=== PATIENT | female | born 1940 | race African-American/Black ===

== ENCOUNTER 2016-09-30 06:30 | Emergency (ER) | payer MEDICARE, OTHER ==
[~2016-09-30 06:30] MED LIST: AMLO10TA2 PO; AMLO10TA4 PO; ASPI81TA9 PO; ATOR40TA59 PO; BENZ100C PO; CALC-98 PO; CARV25TA2 PO; CARV3.12 PO; CARV6.25 PO; CHLO25TA PO; CYCL10TA2 PO; DICL100G7 TOP; DONE10TA7 PO; DONE5TAB33 PO; GABA-586 PO; GUAI600T38 PO; HYDR12.53 PO; LISI10TA2 PO; LORA0.5T96 PO; NITR0.4T SL; ONDA4TAB10 SL; POTA10CA PO; POTA20TA4 PO; PRAV20TA PO; PRAV40TA2 PO; RIVA10TA PO; RIVA15TA PO; RIVA20TA2 PO; TRIA1CAP3 PO; [UNRECOGNIZED DRUG - REMARK]
--- NOTE | 2016-09-30 07:00 | ED.ADGEN ---
Past History Past Medical History: Anxiety, Arthritis, CAD, Depression, DVT, Heart Disease, Hypertension Past Surgical History: Hysterectomy, Knee Replacement, Other Smoking: Non-smoker Alcohol Use: None Drug Use: None Adult General HPI HPI Patient is a 75 year old female presents after a brief episode of "sharp" chest pain that lasted less than 30 minutes. It did not radiate. She had no associated symptoms such as diaphoresis, dyspnea, nausea, or vomiting. Patient denies any other history besides hypertension. She does relate that she has had some stress recently involving her children. Denies any pain currently. Review of Systems Review of Systems Constitutional: Denies fever or chills [] Eyes: Denies change in visual acuity, redness, or eye pain [] HENT: Denies nasal congestion or sore throat [] Respiratory: Denies cough or shortness of breath [] Cardiovascular: No additional information not addressed in HPI [] GI: Denies abdominal pain, nausea, vomiting, bloody stools or diarrhea [] : Denies dysuria or hematuria [] Musculoskeletal: Denies back pain or joint pain [] Integument: Denies rash or skin lesions [] Neurologic: Denies headache, focal weakness or sensory changes [] Endocrine: Denies polyuria or polydipsia [] Allergies Allergies Allergies Coded Allergies Type Severity Reaction Last Updated Verified ARB-Angiotensin Receptor Antagonist Allergy Severe 09/09/15 Yes Penicillins Allergy Severe 04/30/15 Yes meperidine Allergy Severe 04/30/15 Yes lisinopril Allergy Intermediate 05/01/15 Yes Physical Exam Physical Exam Constitutional: Well developed, well nourished, no acute distress, non-toxic appearance. [] HENT: Normocephalic, atraumatic, bilateral external ears normal, oropharynx moist, no oral exudates, nose normal. [] Eyes: PERRLA, EOMI, conjunctiva normal, no discharge. [] Neck: Normal range of motion, no tenderness, supple, no stridor. [] Cardiovascular:Heart rate regular rhythm, no murmur [] Lungs & Thorax: Bilateral breath sounds clear to auscultation [] Abdomen: Bowel sounds normal, soft, no tenderness, no masses, no pulsatile masses. [] Skin: Warm, dry, no erythema, no rash. [] Back: No tenderness, no CVA tenderness. [] Extremities: No tenderness, no cyanosis, no clubbing, ROM intact, no edema. [] Neurologic: Alert and oriented X 3, normal motor function, normal sensory function, no focal deficits noted. [] Psychologic: Affect normal, judgement normal, mood normal. [] Current Patient Data Vital Signs Vital Signs Date Time Temp Pulse Resp B/P Pulse Ox O2 Delivery O2 Flow Rate FiO2 09/30/16 06:50 97.9 69 12 99 Room Air Lab Results Laboratory Tests Test 09/30/16 06:59 09/30/16 07:13 POC Troponin I 0.01ng/ml (<0.08) POC Hemoglobin 13.6gm/dL POC Hematocrit 40% POC Sodium 143mmol/L (135-145) POC Potassium 3.4mmol/L (3.5-5.0) L POC Chloride 100mmol/L (98-110) POC Total CO2 28mmol/L (23-32) Anion Gap 19mmol/L (6-14) H POC Blood Urea Nitrogen 11mg/dL (8-26) POC Creatinine 0.8mg/dL (0.5-1.4) Glucose Level 120mg/dL (60-99) H POC Ionized Calcium (Gus) 1.07mmol/L (1.13-1.32) L EKG EKG EKG interpreted by me, normal sinus rhythm, 64 beats for minute, no ST segment elevation, normal axis. [] Radiology/Procedures Radiology/Procedures Chest x-ray interpreted by me, no acute cardiopulmonary process. [] Course & Med Decision Making Course & Med Decision Making Pertinent Labs and Imaging studies reviewed. (See chart for details) Reassuring workup in the Emergency department. Patient will call Dr. Smith' s office later this morning to arrange follow-up. She will return emergency department sooner she lost new or worsening symptoms. [] Final Impression Final Impression Chest Pain[] Problems: Dragon Disclaimer Dragon Disclaimer This electronic medical record was generated, in whole or in part, using a voice recognition dictation system. SYLVIA DIAZ MD Sep 30, 2016 07:00
[2016-09-30 07:32] LABS: HEMOGLOBIN ISTAT 13.6 gm/dL; POTASSIUM ISTAT 3.4 mmol/L (3.5-5.0)
[2016-09-30] MEDS ORDERED: HYDROMORPHONE PF 1 MG/ML DISP.SYRIN. ONE (08:06)
[2016-09-30 08:10] VITALS: BP 180/69
--- NOTE | 2016-09-30 08:19 | RAD ---
Portable chest, 09/30/2016: History: Chest pain Comparison is made to a study from 05/18/2016. The heart is enlarged. There is tortuosity of the thoracic aorta. The pulmonary vascularity is normal. There is an unchanged nodule in the right mid lung which is probably a granuloma. No acute infiltrates are seen. There is no evidence of pleural fluid. IMPRESSION: 1. Cardiomegaly. 2. No acute abnormality is detected.
--- NOTE | 2016-09-30 17:31 | EKG ---
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
== END 2016-09-30 08:16 | disposition home or self-care (01) ==
LOC: ER 06:30
DX: R07.9 Chest pain, unspecified (principal); I25.10 Atherosclerotic heart disease of native coronary artery without angina pectoris; I11.9 Hypertensive heart disease without heart failure; M19.90 Unspecified osteoarthritis, unspecified site; Z86.718 Personal history of other venous thrombosis and embolism; Z88.0 Allergy status to penicillin; Z88.8 Allergy status to other drugs, medicaments and biological substances
CPT/HCPCS: 71010; 80047; 84484; 93005; 99284-25

== ENCOUNTER → 2017-02-06 | Outpatient (CLI) | payer MEDICARE, OTHER ==
[~2017-02-06] MED LIST changes: +ASPI-612 PO; -ASPI81TA9 PO; +CYCL-331 PO; -CYCL10TA2 PO; +DICL100G18 TOP; -DICL100G7 TOP; -DONE5TAB33 PO; +DONE5TAB56 PO; -GUAI600T38 PO; +GUAI600T47 PO; +IOHEXOL 300 MG/ML 75 ML VIAL. IV ONE
--- NOTE | 2017-02-06 15:47 | RAD ---
CTA of the chest with contrast (pulmonary embolism protocol) 02/06/2017 Clinical history: Elevated d-dimer. Technique: After the intravenous administration of 75 cc of Omnipaque 300, contiguous, 0.625 mm axial sections were obtained through the chest. 2 mm reconstructed axial and 3-D MIP sagittal and coronal reconstructed images were obtained. One or more of the following individualized dose reduction techniques were utilized for this study: 1. Automated exposure control. 2. Adjustment of the mA and/or kV according to patient size. 3. Use of iterative reconstruction technique. Findings: No filling defect is seen within the major branches of either pulmonary artery. There is no CT evidence of pulmonary embolism. The heart is mildly enlarged. Atherosclerotic calcification of the thoracic aorta and its branches is seen. The thoracic aorta is tortuous but tapers normally. Extensive coronary artery calcifications are noted. No area of consolidation is seen. Dependent subsegmental atelectasis seen involving both lungs, right greater than left. No pneumothorax or definite pleural effusion is noted. Impression: There is no CT evidence of pulmonary embolism.
== END | disposition home or self-care (01) ==
LOC: CT 15:03
PROVIDERS: ATTEND Family Medicine
DX: I70.0 Atherosclerosis of aorta (principal); R05 Cough
CPT/HCPCS: 71275; Q9967

== ENCOUNTER 2019-02-15 15:12 | Emergency (ER) | payer MEDICARE, OTHER ==
[~2019-02-15] VITALS: Ht 165.1 cm; Wt 95.0 kg
[~2019-02-15 15:12] MED LIST changes: -AMLO10TA2 PO; +AMLO10TA8 PO; -CHLO25TA PO; +CHLO25TA9 PO; -HYDR12.53 PO; +HYDR12.572 PO; -IOHEXOL 300 MG/ML 75 ML VIAL. IV ONE
--- NOTE | 2019-02-15 15:58 | PHYS DOC ---
Past History Past Medical History: Anxiety, Arthritis, CAD, Dementia, Depression, DVT, Heart Disease, Hypertension Past Surgical History: Hysterectomy, Knee Replacement, Other Smoking: Non-smoker Alcohol Use: None Drug Use: None Adult General Chief Complaint Chief Complaint: HIP PAIN HPI HPI Patient is an 78-year-old female presents complaining of left hip discomfort. Patient denies any fall. He believes this to started today. Increased pain with movement. No pain medicines have been taken. Denies any numbness or tingling. Patient is able to ambulate. Pain is moderate to severe in intensity and sharp in nature. Denies any previous history of hip surgeries. She has prior history of bilateral knee surgeries/replacements. [] Review of Systems Review of Systems Constitutional: Denies fever or chills [] Eyes: Denies change in visual acuity, redness, or eye pain [] HENT: Denies nasal congestion or sore throat [] Respiratory: Denies cough or shortness of breath [] Cardiovascular: No chest pain or palpitations[] GI: Denies abdominal pain, nausea, vomiting, bloody stools or diarrhea [] : Denies dysuria or hematuria [] Musculoskeletal: Denies back pain, see history of present illness[] Integument: Denies rash or skin lesions [] Neurologic: Denies headache, focal weakness or sensory changes [] Endocrine: Denies polyuria or polydipsia [] All other systems were reviewed and found to be within normal limits, except as documented in this note. Current Medications Current Medications Current Medications Medications (Trade) Dose Ordered Sig/[facility] Start Time Stop Time Status Last Admin Dose Admin Tramadol HCl (Ultram) 50 mg 1X ONCE 02/15/19 16:00 02/15/19 16:01 02/15/19 15:54 50 MG Allergies Allergies Allergies Coded Allergies Type Severity Reaction Last Updated Verified ARB-Angiotensin Receptor Antagonist Allergy Severe 02/15/19 Yes Penicillins Allergy Severe 02/15/19 Yes meperidine Allergy Severe 02/15/19 Yes lisinopril Allergy Intermediate 02/15/19 Yes Physical Exam Physical Exam Constitutional: Well developed, well nourished, no acute distress, non-toxic appearance. [] HENT: Normocephalic, atraumatic, bilateral external ears normal, oropharynx moist, no oral exudates, nose normal. [] Eyes: PERRLA, EOMI, conjunctiva normal, no discharge. [] Neck: Normal range of motion, no tenderness, supple, no stridor. [] Cardiovascular:Heart rate regular rhythm, no murmur [] Lungs & Thorax: Bilateral breath sounds clear to auscultation [] Abdomen: Bowel sounds normal, soft, no tenderness, no masses, no pulsatile masses. [] Skin: Warm, dry, no erythema, no rash. [] Back: No tenderness, no CVA tenderness. [] Extremities: Left hip shows no rotational deformity. Pelvis is stable and 3 planes. No pain with axial loading. Normal gait. She is distally neurovascularly intact. Joined below was evaluated and was normal. The other 3 extremities show: No tenderness, no cyanosis, no clubbing, ROM intact, no edema. [] Neurologic: Alert and oriented X 3, normal motor function, normal sensory function, no focal deficits noted. [] Psychologic: Affect normal, judgement normal, mood normal. [] Current Patient Data Vital Signs Vital Signs Date Time Temp Pulse Resp B/P (MAP) Pulse Ox O2 Delivery O2 Flow Rate FiO2 02/15/19 15:54 18 96 Room Air 02/15/19 15:18 98.4 79 EKG EKG [] Radiology/Procedures Radiology/Procedures PROCEDURE: HIP LEFT 2V WITH PELVIS AP pelvis radiograph to include AP and lateral radiographs of the left hip 02/15/2019 CLINICAL HISTORY: Left hip pain. An AP digital radiograph of the pelvis to include both hips was obtained. AP and lateral digital radiographs of the left hip were obtained. No pelvic bone fracture is seen. Both hips are intact. Specifically no fracture or dislocation of the left hip is seen. Mild to moderate degenerative changes are seen involving both hips. Calcifications are seen within the pelvis consistent with phleboliths. Degenerative changes are seen involving both SI joints. IMPRESSION: Degenerative changes are seen as discussed above. No acute osseous abnormality is seen.[] Course & Med Decision Making Course & Med Decision Making Pertinent Labs and Imaging studies reviewed. (See chart for details) ED course: Patient arrived, was placed in bed, and tolerated exam well. She received pain medicine and was transported to and from radiology with any complication. She reported feeling better with pain medicine. After the return of the laboratory and imaging findings, these were discussed with the patient and family who voiced understanding. All questions were answered. She was di scharged in improved condition. Medical decision making: There is no evidence of a fracture dislocation. No evidence of intractable pain. Her blood pressure was noted to be elevated which improved with pain medicine. Believe that this pressure elevation was secondary to the discomfort. Patient has some leukocyte esterase in her urine, will cover her for a urinary tract infection. No evidence of pyelonephritis.[] Dragon Disclaimer Dragon Disclaimer This electronic medical record was generated, in whole or in part, using a voice recognition dictation system. Departure Departure: Impression: Primary Impression: Hip pain, left Additional Impression: Urinary tract infection Disposition: HOME, SELF-CARE Condition: STABLE Referrals: ARIADNE STEPHENS MD (PCP) Follow-up in 2 days Patient Instructions: Hip Pain, Urinary Tract Infection Additional Instructions: Follow-up with your regular doctor in 2 days. Your blood pressure was elevated. This should be followed up by your primary care team. Return to the ER if worsening pain, weakness, fever of more than 101�, or any other concerns. Scripts Tramadol Hcl (TRAMADOL HCL) 50 Mg Tablet 50 MG PO PRN Q6HRS PRN for PAIN, #20 TAB Prov: HU GRIJALVA DO 02/15/19 Meloxicam (MELOXICAM) 7.5 Mg Tablet 7.5 MG PO DAILY for PAIN, #20 TAB Prov: HU GRIJALVA DO 02/15/19 Sulfamethoxazole/Trimethoprim (BACTRIM DS TABLET) 1 Each Tablet 1 TAB PO BID for urinary tract infection, #20 TAB Prov: HU GRIJALVA DO 02/15/19 Problem Qualifiers Additional Impression: Urinary tract infection Urinary tract infection type: site unspecified Hematuria presence: without hematuria Qualified Codes: N39.0 - Urinary tract infection, site not specified HU GRIJALVA DO Feb 15, 2019 15:58
[2019-02-15] MEDS ORDERED: traMADol 50 MG TABLET PO ONE (16:00)
--- NOTE | 2019-02-15 16:10 | RAD ---
AP pelvis radiograph to include AP and lateral radiographs of the left hip 02/15/2019 CLINICAL HISTORY: Left hip pain. An AP digital radiograph of the pelvis to include both hips was obtained. AP and lateral digital radiographs of the left hip were obtained. No pelvic bone fracture is seen. Both hips are intact. Specifically no fracture or dislocation of the left hip is seen. Mild to moderate degenerative changes are seen involving both hips. Calcifications are seen within the pelvis consistent with phleboliths. Degenerative changes are seen involving both SI joints. IMPRESSION: Degenerative changes are seen as discussed above. No acute osseous abnormality is seen. Electronically signed by: Derik Zamora MD (02/15/2019 4:07 PM) [id number]
[2019-02-15] MEDS ORDERED: MELO7.5T29 PO (17:31)
[2019-02-15] MEDS ORDERED: SULF1TAB24 PO (17:31)
[2019-02-15] MEDS ORDERED: TRAM50TA PO (17:31)
[2019-02-15 17:40] VITALS: BP 205/92
[2019-02-15 18:08] LABS: BACTERIA,URINE FEW /HPF (0-FEW); BILIRUBIN,URINE NEG (NEG); COLOR,URINE YELLOW; GLUCOSE,URINE NEG (NEG); NITRITE,URINE NEG (NEG); RBC,URINE 0 /HPF (0-2); SQUAMOUS EPITHELIAL CELL,UR OCC /LPF; UROBILINOGEN,URINE 0.2 mg/dL (0.2 mg/dL)
[2019-02-15 18:11] LABS: CLARITY,URINE CLOUDY
== END 2019-02-15 18:04 | disposition home or self-care (01) ==
LOC: ER 15:12
DX: M25.552 Pain in left hip (principal); N39.0 Urinary tract infection, site not specified; F41.9 Anxiety disorder, unspecified; M19.90 Unspecified osteoarthritis, unspecified site; I25.10 Atherosclerotic heart disease of native coronary artery without angina pectoris; Z86.718 Personal history of other venous thrombosis and embolism; I11.9 Hypertensive heart disease without heart failure; F03.90 Unspecified dementia, unspecified severity, without behavioral disturbance, psychotic disturbance, mood disturbance, and anxiety; Z88.8 Allergy status to other drugs, medicaments and biological substances; Z88.0 Allergy status to penicillin
CPT/HCPCS: 73502; 81001; 87086; 99285

== ENCOUNTER 2019-06-25 18:00 | Emergency (ER) | payer MEDICARE, OTHER ==
[~2019-06-25] VITALS: Ht 165.1 cm; Wt 85.3 kg
[~2019-06-25 18:00] MED LIST changes: +MELO7.5T29 PO; -NITR0.4T SL; +NITR0.4T24 SL; +SULF1TAB24 PO; +TRAM50TA PO
--- NOTE | 2019-06-25 18:13 | EKG ---
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
--- NOTE | 2019-06-25 18:19 | RAD ---
Examination: CT CODE STROKE HEAD WO History: Stroke Comparison/Correlation: 05/18/2016 CT head without contrast Findings: Topogram demonstrates degenerative changes of the cervical spine with reversal of lordosis. Axial images of the head were obtained without contrast. Atrophy is present. No intracranial hemorrhage, midline shift, mass effect, or evidence of evolving infarct. Bony structures are unremarkable. Impression: Atrophy. No suspicious process. Consider further evaluation if clinical concern persists. Results were provided to Lara of the emergency Department on 06/25/2019 at 6:15 PM. PQRS Compliance Statement: One or more of the following individualized dose reduction techniques were utilized for this examination: 1. Automated exposure control 2. Adjustment of the mA and/or kV according to patient size 3. Use of iterative reconstruction technique Electronically signed by: Getachew Mendez MD (06/25/2019 6:16 PM) [facility]
[2019-06-25] MEDS ORDERED: ONDANSETRON PF 4 MG/2 ML VIAL. IVP ONE (18:30)
--- NOTE | 2019-06-25 18:34 | PHYS DOC ---
Past History Past Medical History: Anxiety, Arthritis, CAD, Dementia, Depression, DVT, Heart Disease, Hypertension Past Surgical History: Hysterectomy, Knee Replacement, Other Smoking: Non-smoker Alcohol Use: None Drug Use: None Adult General Chief Complaint Chief Complaint: NEURO SYMPTOMS/DEFICITS HPI HPI 78-year-old female presents via EMS as a code stroke. The patient was sitting at the table having dinner at 1720 when she started to stare off into space and partially slumped in her chair. Her eyes were open, but she was not responding. The patient did vomit 2 times before EMS arrived. As EMS arrived, she began to respond to commands. She was answering some questions. She has been telling her family that she feels a bit off today, but given no specifics. She has been feeling cold. The patient is usually alert and oriented. She does have mild dementia. The patient denies any pain or be concerned at this time. On arrival to the ED, the patient is answering questions. She is moving all 4 extremities. Her initial NIH scale was 1. The patient denies measured fever at home. Review of Systems Review of Systems Constitutional: Denies fever or chills [] Eyes: Denies change in visual acuity, redness, or eye pain [] HENT: Denies nasal congestion or sore throat [] Respiratory: Denies cough or shortness of breath [] Cardiovascular: No additional information not addressed in HPI [] GI: Vomiting 2. Denies abdominal pain, nausea, bloody stools or diarrhea [] : Denies dysuria or hematuria [] Musculoskeletal: Denies back pain or joint pain [] Integument: Denies rash or skin lesions [] Neurologic: Near syncope. Denies headache, focal weakness or sensory changes [] Endocrine: Denies polyuria or polydipsia [] All other systems were reviewed and found to be within normal limits, except as documented in this note. Allergies Allergies Allergies Coded Allergies Type Severity Reaction Last Updated Verified ARB-Angiotensin Receptor Antagonist Allergy Severe 02/15/19 Yes Penicillins Allergy Severe 02/15/19 Yes meperidine Allergy Severe 02/15/19 Yes lisinopril Allergy Intermediate 02/15/19 Yes Physical Exam Physical Exam Constitutional: Well developed, well nourished, no acute distress, non-toxic ap pearance. [] HENT: Normocephalic, atraumatic, bilateral external ears normal, oropharynx moist, no oral exudates, nose normal. [] Eyes: PERRLA, EOMI, conjunctiva normal, no discharge. [] Neck: Normal range of motion, no tenderness, supple, no stridor. [] Cardiovascular:Heart rate regular rhythm, no murmur [] Lungs & Thorax: Bilateral breath sounds clear to auscultation [] Abdomen: Bowel sounds normal, soft, no tenderness, no masses, no pulsatile masses. [] Skin: Warm, dry, no erythema, no rash. [] Back: No tenderness, no CVA tenderness. [] Extremities: No tenderness, no cyanosis, no clubbing, ROM intact, no edema. [] Neurologic: Alert and oriented X 3, normal motor function, normal sensory function, no focal deficits noted. [] Psychologic: Affect normal, judgement normal, mood normal. [] Current Patient Data Vital Signs Vital Signs Date Time Temp Pulse Resp B/P (MAP) Pulse Ox O2 Delivery O2 Flow Rate FiO2 06/25/19 18:15 97.9 55 16 98 Room Air 06/25/19 18:08 162/72 (102) EKG EKG Sinus rhythm, rate 58, normal axis, [address] elevation in lead V2, V3, right bundle branch block.[] Radiology/Procedures Radiology/Procedures [] Impressions: Examination: CT CODE STROKE HEAD WO History: Stroke Comparison/Correlation: 05/18/2016 CT head without contrast Findings: Topogram demonstrates degenerative changes of the cervical spine with reversal of lordosis. Axial images of the head were obtained without contrast. Atrophy is present. No intracranial hemorrhage, midline shift, mass effect, or evidence of evolving infarct. Bony structures are unremarkable. Impression: Atrophy. No suspicious process. Consider further evaluation if clinical concern persists. Results were provided to Lara of the emergency Department on 06/25/2019 at 6:15 PM. RS Compliance Statement: One or more of the following individualized dose reduction techniques were utilized for this examination: 1. Automated exposure control 2. Adjustment of the mA and/or kV according to patient size 3. Use of iterative reconstruction technique Electronically signed by: Getachew Lizama MD (06/25/2019 6:16 PM) [facility] DICTATED AND SIGNED BY: GETACHEW LIZAMA MD DATE: 06/25/191815 CC: ANGIE BABBPETER J MD ~ Course & Med Decision Making Course & Med Decision Making Pertinent Labs and Imaging studies reviewed. (See chart for details) When I interviewed the patient, I did not find any focal deficits. She does have slight delay in answering some questions, but gives appropriate answers. She can't remember all of her medications that sounds like that's baseline for her according to her daughter. Her head CT is negative. Her labs are unremarkable. Her urinalysis is negative for infection. The patient could be coming down with a viral illness. It is also possible that she started to choke on something, but did not have obvious choking symptoms. She has had no further neuro deficits in the emergency room. I believe she is able to be discharged. She'll return home with family. If her condition changes or worsens, they will return to the emergency room. [] Dragon Disclaimer Dragon Disclaimer This electronic medical record was generated, in whole or in part, using a voice recognition dictation system. Departure Departure: Impression: Primary Impression: Vomiting Additional Impression: Decreased responsiveness Disposition: 01 HOME, SELF-CARE Condition: STABLE Referrals: ARIADNE STEPHENS MD (PCP) Patient Instructions: Nausea and Vomiting, Itcw-kk-Lode Problem Qualifiers Primary Impression: Vomiting Vomiting type: unspecified Vomiting Intractability: non-intractable Nausea presence: without nausea Qualified Codes: R11.11 - Vomiting without nausea ANGIE BABB DO Jun 25, 2019 18:34
[2019-06-25 18:40] LABS: CREATININE 1.1 mg/dL (0.6-1.0); GFR 57.8; HEMATOCRIT 36.7 % (36.0-47.0); HEMOGLOBIN 11.8 g/dL (12.0-15.5); POTASSIUM 3.1 mmol/L (3.5-5.1); RED BLOOD COUNT 4.25 x10^6/uL (3.50-5.40); RED CELL DISTRIBUTION WIDTH 15.8 % (11.5-14.5); WHITE BLOOD COUNT 3.1 x10^3/uL (4.0-11.0)
[2019-06-25 18:48] LABS: ALBUMIN 3.7 g/dL (3.4-5.0); TOTAL BILIRUBIN 0.9 mg/dL (0.2-1.0); TOTAL PROTEIN 7.5 g/dL (6.4-8.2)
[2019-06-25] MEDS ORDERED: IV NORMAL SALINE 1,000ML 1,000 ML IV ONE (19:45)
[2019-06-25 20:16] VITALS: BP 145/67
[2019-06-25 20:28] LABS: BACTERIA,URINE 0 /HPF (0-FEW); BILIRUBIN,URINE NEG (NEG); CLARITY,URINE CLEAR; COLOR,URINE YELLOW; GLUCOSE,URINE NEG (NEG); NITRITE,URINE NEG (NEG); RBC,URINE 0 /HPF (0-2); SQUAMOUS EPITHELIAL CELL,UR FEW /LPF; WBC,URINE RARE /HPF (0-4)
== END 2019-06-25 20:54 | disposition home or self-care (01) ==
LOC: ER 18:00
DX: R55 Syncope and collapse (principal); R11.11 Vomiting without nausea; F41.9 Anxiety disorder, unspecified; M19.90 Unspecified osteoarthritis, unspecified site; I25.10 Atherosclerotic heart disease of native coronary artery without angina pectoris; F03.90 Unspecified dementia, unspecified severity, without behavioral disturbance, psychotic disturbance, mood disturbance, and anxiety; Z86.718 Personal history of other venous thrombosis and embolism; I11.9 Hypertensive heart disease without heart failure; Z88.0 Allergy status to penicillin; Z88.8 Allergy status to other drugs, medicaments and biological substances
CPT/HCPCS: 36415; 70450; 80053; 81001; 85027; 85610; 85730; 93005; 96361; 96374; 99285; J2405; P9612; J7030

== ENCOUNTER 2019-12-30 13:27 | Emergency (ER) | payer MEDICARE, OTHER ==
[~2019-12-30] VITALS: Ht 165.1 cm; Wt 85.2 kg
[~2019-12-30 13:27] MED LIST changes: -ASPI-612 PO; +ASPI-889 PO; +LORA0.5T21 PO; -LORA0.5T96 PO
[2019-12-30] MEDS ORDERED: IV NORMAL SALINE 1,000ML 1,000 ML IV ONE (14:00)
[2019-12-30 14:49] LABS: BASO % 1 % (0-3); EOS % 1 % (0-3); HEMATOCRIT 37.6 % (36.0-47.0); HEMOGLOBIN 12.4 g/dL (12.0-15.5); LYMPH % 34 % (24-48); MEAN CORPUSCULAR HEMOGLOBIN 29 pg (25-35); MEAN CORPUSCULAR HGB CONC 33 g/dL (31-37); MEAN CORPUSCULAR VOLUME 86 fL (79-100); MONO # 0.3 x10^3/uL (0.0-1.1); MONO % 12 % (0-9); NEUT # 1.5 x10^3uL (1.8-7.7); NEUT % 52 % (31-73); PLATELET COUNT 195 x10^3/uL (140-400); RED BLOOD COUNT 4.36 x10^6/uL (3.50-5.40); RED CELL DISTRIBUTION WIDTH 15.5 % (11.5-14.5); WHITE BLOOD COUNT 2.8 x10^3/uL (4.0-11.0)
[2019-12-30 14:58] LABS: CALCIUM 8.6 mg/dL (8.5-10.1); CREATININE 1.2 mg/dL (0.6-1.0); GFR 52.2; POTASSIUM 3.5 mmol/L (3.5-5.1)
[2019-12-30 15:13] LABS: ALBUMIN 3.8 g/dL (3.4-5.0); ALBUMIN/GLOBULIN RATIO 0.9 (1.0-1.7); MAGNESIUM 2.1 mg/dL (1.8-2.4); TOTAL BILIRUBIN 0.6 mg/dL (0.2-1.0); TOTAL PROTEIN 7.9 g/dL (6.4-8.2)
--- NOTE | 2019-12-30 15:14 | RAD ---
CT scan of the head without contrast 12/30/2019 Clinical History: Head pain post fall. Technique: Unenhanced, contiguous, 5 mm axial sections were obtained through the head. One or more of the following individualized dose reduction techniques were utilized for this study: 1. Automated exposure control. 2. Adjustment of the mA and/or kV according to patient size. 3. Use of iterative reconstruction technique. Findings: Comparison study is dated 06/25/2019. There is generalized parenchymal atrophy. Areas of decreased attenuation are seen within the periventricular and subcortical white matter of both cerebral hemispheres consistent with areas of small vessel ischemic disease. No acute parenchymal abnormality is seen. No extra-axial fluid collection is noted. No skull fracture is seen. Impression: No acute intracranial abnormality is seen. CT scan of the cervical spine without contrast 12/30/2019 Clinical history: Fall with neck injury. Technique: Unenhanced, contiguous, 0.625 mm axial sections were obtained through the cervical spine. Axial, coronal and sagittal reconstructed images were obtained. One or more of the following individualized dose reduction techniques were utilized for this study: 1. Automated exposure control. 2. Adjustment of the mA and/or kV according to patient size. 3. Use of iterative reconstruction technique. Findings: Sagittal and coronal reconstructed images demonstrate reversal of the normal cervical lordosis. Degenerative changes consisting of varying degrees of disc space narrowing, vertebral endplate sclerosis and mild to moderate anterior vertebral body osteophyte formation are seen throughout the cervical disc spaces. No fracture or subluxation of the cervical vertebrae is seen. Degenerative changes are seen involving the uncovertebral and facet joints throughout the cervical disc spaces. Atherosclerotic calcification of the abdominal aorta and its branches is noted. Impression: No fracture or subluxation of the cervical vertebra is identified. Electronically signed by: Derik Zamora MD (12/30/2019 3:12 PM) [id number]
--- NOTE | 2019-12-30 15:19 | RAD ---
CT scan of the orbits without contrast 12/30/2019 CLINICAL HISTORY: Fall with left eye swelling. TECHNIQUE: Unenhanced, contiguous, 0.625 mm axial sections were obtained through the orbits. 2 mm reconstructed sagittal, axial and coronal images were obtained. One or more of the following individualized dose reduction techniques were utilized for this study: 1. Automated exposure control. 2. Adjustment of the mA and/or kV according to patient size. 3. Use of iterative reconstruction technique. FINDINGS: Preseptal soft tissue swelling is seen involving the left orbit. No orbital fracture is seen. The globes, extraocular muscles and optic nerve sheath complexes are within normal limits. The visualized paranasal sinuses are clear. No facial bone fracture is seen. IMPRESSION: Preseptal soft tissue swelling is seen involving the left orbit. No orbital fracture is seen. Electronically signed by: Derik Zamora MD (12/30/2019 3:16 PM) [id number]
[2019-12-30 15:42] LABS: BACTERIA,URINE FEW /HPF (0-FEW); BILIRUBIN,URINE NEG (NEG); CLARITY,URINE CLEAR; COLOR,URINE YELLOW; GLUCOSE,URINE NEG (NEG); NITRITE,URINE NEG (NEG); RBC,URINE OCC /HPF (0-2); SQUAMOUS EPITHELIAL CELL,UR FEW /LPF; UROBILINOGEN,URINE 0.2 mg/dL (0.2 mg/dL)
[2019-12-30] MEDS ORDERED: FLUORESCEIN 1MG EYE STRIP. OS ONE (15:45)
[2019-12-30] MEDS ORDERED: TETRACAINE 0.5% OPHTH SOLUTION 4ML BOTTLE. OS ONE (15:45)
[2019-12-30] MEDS ORDERED: ERYTHROMYCIN 0.5% OPHTH OINTMENT 1GM TUBE. OS ONE (15:45)
[2019-12-30] MEDS ORDERED: ERYT1OIN6 OP (15:57)
[2019-12-30] MEDS ORDERED: ACET-704 PO (15:57)
--- NOTE | 2019-12-30 15:57 | PHYS DOC ---
Past History Past Medical History: Dementia, Hypertension Past Medical History Limited secondary to dementia Past Surgical History: No Surgical History Past Surgical History Limited secondary to dementia Smoking: Non-smoker Alcohol Use: None Drug Use: None Social History Limited secondary to dementia General Adult EDM: Chief Complaint: MECHANICAL FALL HPI: HPI: 79-year-old female with past medical history of dementia presents with daughter with report of fall while at home. Patient apparently hit the left side of her face now with swelling to left periorbital area and redness of eye. Patient denies any chest pain. Reports was able to ambulate afterwards. Denies known fever. History of present illness limited secondary to patient's dementia. Review of Systems: Review of Systems: Constitutional: Denies fever or chills Eyes: Reports left periorbital edema/ecchymosis and left eye redness HENT: Denies epistaxis Respiratory: Denies cough or shortness of breath Cardiovascular: Denies chest pain or palpitations GI: Denies nausea or vomiting Musculoskeletal: Denies neck pain Integument: Denies laceration Neurologic: Denies headache Review of systems limited secondary to dementia Current Medications: Current Meds: Current Medications Medications (Trade) Dose Ordered Sig/Mary Start Time Stop Time Status Last Admin Dose Admin Erythromycin (Romycin) 0.25 inch 1X ONCE 12/30/19 15:45 12/30/19 15:46 DC Fentanyl Citrate (Fentanyl 2ml Vial) 25 mcg 1X ONCE 12/30/19 14:30 12/30/19 14:39 DC 12/30/19 15:00 25 MCG Fluorescein Sodium (Ful-Anjelica 1mg) 1 strip 1X ONCE 12/30/19 15:45 12/30/19 15:46 DC Sodium Chloride 1,000 ml @ 1,000 mls/hr 1X ONCE 12/30/19 14:00 12/30/19 14:59 DC 12/30/19 14:30 1,000 MLS/HR Tetracaine HCl (Tetracaine) 1 drop 1X ONCE 12/30/19 15:45 12/30/19 15:46 DC Allergies: Allergies: Allergies Coded Allergies Type Severity Reaction Last Updated Verified ARB-Angiotensin Receptor Antagonist Allergy Severe 02/15/19 Yes Penicillins Allergy Severe 02/15/19 Yes meperidine Allergy Severe 02/15/19 Yes lisinopril Allergy Intermediate 02/15/19 Yes Physical Exam: PE: Constitutional: Well developed, well nourished, no acute distress, non-toxic appearance HENT: Normocephalic, atraumatic, no septal hematoma or signs of epistaxis Eyes: PERRL, EOMI, conjunctiva injected on left with chemosis and subconjunctival hemorrhage, no discharge, tonopen 18, 20 to left eye Neck: Normal range of motion, no midline tenderness, supple Cardiovascular: Heart rate normal, regular rhythm Lungs & Thorax: Bilateral breath sounds clear to auscultation, no wheezing Abdomen: Soft, no tenderness; pelvis stable and nontender Skin: Warm, dry, no erythema, ecchymosis noted on left periorbital region Back: No tenderness, no CVA tenderness Extremities: No tenderness, ROM intact, no edema Neurologic: Alert and oriented X name, normal motor function, normal sensory function, no focal deficits noted Psychologic: Affect normal, judgment abnormal Current Patient Data: Labs: Laboratory Tests Test 12/30/19 14:23 12/30/19 15:08 White Blood Count 2.8 x10^3/uL (4.0-11.0) L Red Blood Count 4.36 x10^6/uL (3.50-5.40) Hemoglobin 12.4 g/dL (12.0-15.5) Hematocrit 37.6 % (36.0-47.0) Mean Corpuscular Volume 86 fL (79-100) Mean Corpuscular Hemoglobin 29 pg (25-35) Mean Corpuscular Hemoglobin Concent 33 g/dL (31-37) Red Cell Distribution Width 15.5 % (11.5-14.5) H Platelet Count 195 x10^3/uL (140-400) Neutrophils (%) (Auto) 52 % (31-73) Lymphocytes (%) (Auto) 34 % (24-48) Monocytes (%) (Auto) 12 % (0-9) H Eosinophils (%) (Auto) 1 % (0-3) Basophils (%) (Auto) 1 % (0-3) Neutrophils # (Auto) 1.5 x10^3uL (1.8-7.7) L Lymphocytes # (Auto) 1.0 x10^3/uL (1.0-4.8) Monocytes # (Auto) 0.3 x10^3/uL (0.0-1.1) Eosinophils # (Auto) 0.0 x10^3/uL (0.0-0.7) Basophils # (Auto) 0.0 x10^3/uL (0.0-0.2) Prothrombin Time 10.8 SEC (9.4-11.4) Prothrombin Time INR 1.0 (0.9-1.1) Activated Partial Thromboplast Time 25 SEC (23-33) Sodium Level 144 mmol/L (136-145) Potassium Level 3.5 mmol/L (3.5-5.1) Chloride Level 106 mmol/L (98-107) Carbon Dioxide Level 30 mmol/L (21-32) Anion Gap 8 (6-14) Blood Urea Nitrogen 22 mg/dL (7-20) H Creatinine 1.2 mg/dL (0.6-1.0) H Estimated GFR (Cockcroft-Gault) 52.2 BUN/Creatinine Ratio 18 (6-20) Glucose Level 125 mg/dL (70-99) H Calcium Level 8.6 mg/dL (8.5-10.1) Magnesium Level 2.1 mg/dL (1.8-2.4) Total Bilirubin 0.6 mg/dL (0.2-1.0) Aspartate Amino Transferase (AST) 17 U/L (15-37) Alanine Aminotransferase (ALT) 20 U/L (14-59) Alkaline Phosphatase 114 U/L (46-116) Creatine Kinase 118 U/L (26-192) Creatine Kinase MB (Mass) 0.6 ng/mL (0.0-3.6) Creatine Kinase MB Relative Index 0.5 % (0-4) Troponin I Quantitative 0.054 ng/mL (0-0.055) Total Protein 7.9 g/dL (6.4-8.2) Albumin 3.8 g/dL (3.4-5.0) Albumin/Globulin Ratio 0.9 (1.0-1.7) L Urine Collection Type Unknown Urine Color Yellow Urine Clarity Clear Urine pH 7.0 Urine Specific [place] 1.020 Urine Protein Neg (NEG-TRACE) Urine Glucose (UA) Neg mg/dL (NEG) Urine Ketones (Stick) Neg mg/dL (NEG) Urine Blood Neg (NEG) Urine Nitrite Neg (NEG) Urine Bilirubin Neg (NEG) Urine Urobilinogen Dipstick 0.2 mg/dL (0.2 mg/dL) Urine Leukocyte Esterase Trace (NEG) Urine RBC Occ /HPF (0-2) Urine WBC 5-10 /HPF (0-4) Urine Squamous Epithelial Cells Few /LPF Urine Bacteria Few /HPF (0-FEW) Urine Mucus Slight /LPF Vital Signs: Vital Signs Date Time Temp Pulse Resp B/P (MAP) Pulse Ox O2 Delivery O2 Flow Rate FiO2 12/30/19 15:00 20 12/30/19 14:06 98.3 77 97 EKG: EKG: [] Radiology/Procedures: Radiology/Procedures: PROCEDURE: CT ORBITS WO CONTRAST CT scan of the orbits without contrast 12/30/2019 CLINICAL HISTORY: Fall with left eye swelling. TECHNIQUE: Unenhanced, contiguous, 0.625 mm axial sections were obtained through the orbits. 2 mm reconstructed sagittal, axial and coronal images were obtained. One or more of the following individualized dose reduction techniques were utilized for this study: 1. Automated exposure control. 2. Adjustment of the mA and/or kV according to patient size. 3. Use of iterative reconstruction technique. FINDINGS: Preseptal soft tissue swelling is seen involving the left orbit. No orbital fracture is seen. The globes, extraocular muscles and optic nerve sheath complexes are within normal limits. The visualized paranasal sinuses are clear. No facial bone fracture is seen. IMPRESSION: Preseptal soft tissue swelling is seen involving the left orbit. No orbital fracture is seen. Electronically signed by: Derik Zamora MD (12/30/2019 3:16 PM) [id number] PROCEDURE: CT HEAD AND CERVICAL SPINE WO CT scan of the head without contrast 12/30/2019 Clinical History: Head pain post fall. Technique: Unenhanced, contiguous, 5 mm axial sections were obtained through the head. One or more of the following individualized dose reduction techniques were utilized for this study: 1. Automated exposure control. 2. Adjustment of the mA and/or kV according to patient size. 3. Use of iterative reconstruction technique. Findings: Comparison study is dated 06/25/2019. There is generalized parenchymal atrophy. Areas of decreased attenuation are seen within the periventricular and subcortical white matter of both cerebral hemispheres consistent with areas of small vessel ischemic disease. No acute parenchymal abnormality is seen. No extra-axial fluid collection is noted. No skull fracture is seen. Impression: No acute intracranial abnormality is seen. CT scan of the cervical spine without contrast 12/30/2019 Clinical history: Fall with neck injury. Technique: Unenhanced, contiguous, 0.625 mm axial sections were obtained through the cervical spine. Axial, coronal and sagittal reconstructed images were obtained. One or more of the following individualized dose reduction techniques were utilized for this study: 1. Automated exposure control. 2. Adjustment of the mA and/or kV according to patient size. 3. Use of iterative reconstruction technique. Findings: Sagittal and coronal reconstructed images demonstrate reversal of the normal cervical lordosis. Degenerative changes consisting of varying degrees of disc space narrowing, vertebral endplate sclerosis and mild to moderate anterior vertebral body osteophyte formation are seen throughout the cervical disc spaces. No fracture or subluxation of the cervical vertebrae is seen. Degenerative changes are seen involving the uncovertebral and facet joints throughout the cervical disc spaces. Atherosclerotic calcification of the abdominal aorta and its branches is noted. Impression: No fracture or subluxation of the cervical vertebra is identified. Electronically signed by: Derik Zamora MD (12/30/2019 3:12 PM) [id number] Course & Med Decision Making: Course & Med Decision Making Pertinent Labs and Imaging studies reviewed. (See chart for details) Elderly patient with past medical history of dementia presents with report of fall at home striking the left side of her face. Patient noted to have periorbital ecchymosis and subconjunctival hemorrhage with chemosis. Patient otherwise neurologically at baseline. No deformities noted. CT head/cervical spine without acute process. CT orbits without fracture or other acute process. Patient with extraocular movement intact. Intraocular pressures normal. Given trauma to region decision to apply empiric antibiotic ophthalmic ointment for protection and hydration of eye. Offered admission which patient and daughter declined. Patient stable for discharge with outpatient follow-up with PCP. Discussed findings and plan with patient and family, who acknowledge understanding and agreement. Kyle Disclaimer: Kyle Disclaimer: This electronic medical record was generated, in whole or in part, using a voice recognition dictation system. Departure Departure: Impression: Primary Impression: Traumatic contusion of left periorbital region Qualified Codes: S05.12XA - Contusion of eyeball and orbital tissues, left eye, initial encounter Additional Impression: Chemosis of left conjunctiva Disposition: 01 HOME/RESIDENCE PRIOR TO ADM Condition: STABLE Referrals: ARIADNE STEPHENS MD (PCP) Patient Instructions: Facial or Scalp Contusion, [id number] Additional Instructions: ICE area 20 min on then leave off for next 20 min. Repeat as needed several times per day for next few days to reduce swelling and bruising. Scripts Erythromycin Base (Erythromycin) 1 Gm Oint...g. 0.25 INCH OP QID for Periorbital Contusion/Chemosis for 5 Days, #1 TUBE Prov: RANDY DIXON DO 12/30/19 Acetaminophen With Codeine (TYLENOL WITH CODEINE #3 TABLET) 1 Each Tablet 1 TAB PO PRN Q6HRS PRN for pain MDD 4 Tablet(s), #10 TAB 0 Refills Prov: RANDY DIXON DO 12/30/19 Justification of Admission: Justification of Admission: Justification of Admission Dx: N/A RANDY DIXON DO Dec 30, 2019 15:57
== END 2019-12-30 16:09 | disposition home or self-care (01) ==
LOC: ER 13:27
DX: S05.12XA Contusion of eyeball and orbital tissues, left eye, initial encounter (principal); H11.422 Conjunctival edema, left eye; I10 Essential (primary) hypertension; F03.90 Unspecified dementia, unspecified severity, without behavioral disturbance, psychotic disturbance, mood disturbance, and anxiety; Z88.0 Allergy status to penicillin; Z88.8 Allergy status to other drugs, medicaments and biological substances; W17.89XA Other fall from one level to another, initial encounter; Y93.01 Activity, walking, marching and hiking; Y92.89 Other specified places as the place of occurrence of the external cause; Y99.8 Other external cause status
CPT/HCPCS: 36415; 70450; 70480; 72125; 80053; 81001; 82553; 83735; 84484; 85025; 85610; 85730; 87086; 96374; 99285; J3010; J7030

== ENCOUNTER 2020-01-09 11:10 | Emergency (ER) | payer MEDICARE, OTHER ==
[~2020-01-09] VITALS: Ht 167.6 cm; Wt 82.4 kg
[~2020-01-09 11:10] MED LIST changes: +ACET-704 PO; +ASPI-612 PO; -ASPI-889 PO; +ERYT1OIN6 OP
[2020-01-09] MEDS ORDERED: FAMOTIDINE 20 MG/2 ML VIAL IVP ONE (11:15)
[2020-01-09] MEDS ORDERED: IV NORMAL SALINE 1,000ML 1,000 ML IV ONE (11:15)
[2020-01-09] MEDS ORDERED: ONDANSETRON PF 4 MG/2 ML VIAL. IVP ONE (11:15)
--- NOTE | 2020-01-09 11:36 | PHYS DOC ---
Past History Past Medical History: Dementia, Hypertension Past Medical History Limited secondary to dementia Past Surgical History: No Surgical History Past Surgical History Limited secondary to dementia Smoking: Non-smoker Alcohol Use: None Drug Use: None Social History Limited secondary to dementia General Adult EDM: Chief Complaint: NAUSEA/VOMITING/DIARRHEA HPI: HPI: 79-year-old female with past medical history of dementia presents via EMS with report of nausea and vomiting x1 episode while patient was at local [employer]. Reports she and a friend were going to run some errands for their [employer] when this episode occurred. EMS reports bystanders thought patient had passed out completely. Patient denies any lightheadedness, dizziness, loss of consci ousness, chest pain, or abdominal pain. Reports nausea has since resolved. Denies any known sick contacts. Denies fever or chills. Patient does have some problems with her memory secondary to dementia, therefore history of present illness is limited. Review of Systems: Review of Systems: Constitutional: Denies fever or chills Respiratory: Denies cough or shortness of breath Cardiovascular: Denies chest pain or palpitations GI: Denies abdominal pain; reports nausea and vomiting : Denies dysuria or hematuria Integument: Denies rash or skin lesions Neurologic: Denies headache, focal weakness or sensory changes Review of systems limited secondary to dementia Current Medications: Current Meds: Current Medications Medications (Trade) Dose Ordered Sig/Mary Start Time Stop Time Status Last Admin Dose Admin Famotidine (Pepcid Vial) 20 mg 1X ONCE 01/09/20 11:15 01/09/20 11:17 DC Ondansetron HCl (Zofran) 4 mg 1X ONCE 01/09/20 11:15 01/09/20 11:17 DC Sodium Chloride 1,000 ml @ 1,000 mls/hr 1X ONCE 01/09/20 11:15 01/09/20 12:14 Allergies: Allergies: Allergies Coded Allergies Type Severity Reaction Last Updated Verified ARB-Angiotensin Receptor Antagonist Allergy Severe 02/15/19 Yes Penicillins Allergy Severe 02/15/19 Yes meperidine Allergy Severe 02/15/19 Yes lisinopril Allergy Intermediate 02/15/19 Yes Physical Exam: PE: Constitutional: Well developed, well nourished, no acute distress, non-toxic appearance HENT: Normocephalic, atraumatic Eyes: PERRL, EOMI, conjunctiva injected on left, no discharge Neck: Normal range of motion, no midline tenderness, supple Cardiovascular: Heart rate normal, regular rhythm Lungs & Thorax: Bilateral breath sounds clear to auscultation, no wheezing Abdomen: Soft, no tenderness; no guarding/rebound tenderness/distention Skin: Warm, dry, no erythema, no rash Extremities: No tenderness, ROM intact, no deformity Neurologic: Alert and oriented X name only, confused with date and hospital name, normal motor function, normal sensory function, no focal deficits noted Psychologic: Affect normal, judgment abnormal EKG: EKG: @1122 Sinus arthur at 52bpm, NO ST elevation, nonspecific t wave inversion I, aVL, and V5-V6, QRS 90ms, QT/QTc 484/452ms Radiology/Procedures: Radiology/Procedures: PROCEDURE: CT HEAD WO CONTRAST CT HEAD WO CONTRAST History: Reason: syncope / Spl. Instructions: / History: Comparison: December 30, 2019 Technique: Noncontrast CT imaging was performed of the head. Exposure: One or more of the following individualized dose reduction techniques were utilized for this examination: 1. Automated exposure control 2. Adjustment of the mA and/or kV according to patient size 3. Use of iterative reconstruction technique. Findings: No intracranial hemorrhage. No mass effect. No hydrocephalus. Foci of decreased attenuation within the hemispheric white matter, most often due to chronic microvascular ischemia, unchanged. Imaged orbits are unremarkable. Imaged paranasal sinuses and mastoid air cells are clear. No acute calvarial fracture. Impression: 1. No acute intracranial abnormality. Electronically signed by: Tano Suazo DO (01/09/2020 12:22 PM) [id number] PROCEDURE: CHEST AP ONLY CHEST AP ONLY History: Reason: weakness / Spl. Instructions: / History: Comparison: September 30, 2016 Findings: Ill-defined patchy opacities bilaterally. Enlarged cardiac size. No pneumothorax. No pleural effusion. Unchanged right midlung calcified nodule, likely prior granulomatous disease. Impression: 1. Ill-defined patchy opacities bilaterally, can be seen with viral pneumonia. 2. Enlarged cardiac size, may represent cardiomegaly and/or pericardial effusion. Electronically signed by: Tano Suazo DO (01/09/2020 12:19 PM) [id number] Course & Med Decision Making: Course & Med Decision Making Pertinent Labs and Imaging studies reviewed. (See chart for details) Elderly patient with past medical history of dementia presents with report of 1 episode of nausea and vomiting. Bystanders that witnessed event were concern for possible loss of consciousness. Patient denies. Denies any chest pain, d izziness, or lightheadedness. Patient is slightly confused but moving all extremities and reports sensation intact. EKG stable. Labs obtained and posted to chart. Chronic neutropenia noted which is similar to prior labs per [facility] review. CT head without acute process. CXR with patchy opacities, cannot exclude viral pneumonia. COVID testing therefore obtained. Family reports no known exposure to COVID-19 or any symptomatic family members. Family reports history of CHF but patient currently not on any diuretic at this time. BNP > 1000. Patient non-symptomatic. O2 Sats stable. Patient without distress. Discussed admission vs discharge with close outpatient follow-up with PCP with family members (daughter and patient's sister). Family with decision to discharge home with close outpatient follow-up. Patient stable for discharge with outpatient follow-up with PCP. Discussed findings and plan with family, who acknowledge understanding and agreement. COVID-19 CRITERIA: The patient was evaluated during the global COVID-19 pandemic, and that diagnosis was suspected/considered upon their initial presentation. Their evaluation, treatment and testing was consistent with current guidelines for patients who present with complaints or symptoms that may be related to COVID-19. Kyle Disclaimer: Kyle Disclaimer: This electronic medical record was generated, in whole or in part, using a voice recognition dictation system. Departure Departure: Impression: Primary Impression: Nausea & vomiting Qualified Codes: R11.2 - Nausea with vomiting, unspecified Additional Impressions: History of dementia Suspected 2019 novel coronavirus infection Disposition: HOME/RESIDENCE PRIOR TO ADM Condition: STABLE Referrals: ARIADNE STEPHENS MD (PCP) Patient Instructions: Dementia, [id number], Nausea and Vomiting, [id number] Additional Instructions: You have been tested for or diagnosed with COVID-19. It is an infection caused by a new type of coronavirus. COVID-19 will cause cold-like or mild flu symptoms in most. It can cause more severe symptoms like problems breathing in some. There is no treatment for COVID-19. The body will clear the infection over time. Self-care will help to ease discomfort. Steps to Take: Self-Care Rest as needed. Healthy habits may help you feel better. Steps include: Choose healthy foods including fruits and vegetables. Drink water throughout the day. Get plenty of sleep each night. If you smoke, try to quit. It may ease breathing. Avoid alcohol. Keep Others Healthy The virus can spread to others. Droplets are released every time you sneeze or cough. The droplets can get into the mouth, nose, or eyes of people near you and lead to infection. To lower the chances of spreading COVID-19 to others: Stay at home until your doctor has said it is safe to leave. If you tested positive this will mean staying isolated until both of the following are true: At least 7 days have passed since the start of illness. You are free of fever for at least 72 hours without the use of medicine. During this time: - Avoid public areas, events, or transportation. Do not return to work or school until your doctor has said it is safe to do so. - Call ahead if you need to go to a medical center. Let them know you may have COVID-19. It will help them guide you where to go. They may also ask you to wear a facemask when you come to the office. - If you call for emergency medical services, let them know you may have COVID- 19. While at home: - Try to avoid close contact with others. Stay about 6 feet away. - If possible, spend most of your time in a separate room from others. - Use a face mask if you will be in close contact with others such as sharing a room or vehicle. - Have someone wipe down common surfaces in the home. Use household information systems security specialist every day on areas like doorknobs, counters, or sinks. - Cough or sneeze into a tissue. Throw the tissue away right after use. If a tissue is not available, cough or sneeze into your elbow. - Wash your hands often. Wash them after sneezing or coughing. Use soap and water and wash for at least 20 seconds. Alcohol based hand glove cleaner can be used if soap and water is not available. - Do not prepare food for others. Avoid sharing personal items like forks, spoons, or toothbrushes. - Avoid close contact with pets while you are sick. There is no evidence of the virus passing to pets. This is a safety step until more is known about this virus. Isolation can be frustrating. Social interaction can help. Keep in touch with friends and family through phone and tech options. You can still interact with others in your home, just keep a safe distance of about 6 feet. Follow-up: Your doctors office will check in with you to see if there are any changes in your health. You may be asked to keep track of symptoms to share with them. They will also let you know when you are clear to be in public again. Problems to Look Out For: Contact your doctor if your recovery is not going as you expect. Get emergency care if you have problems such as: - Trouble breathing - Nonstop chest pain or pressure - Changes in awareness, confusion, or problems waking - Lips or face have bluish color - Worsening of symptoms If you think you have an emergency, call for emergency medical services right away. As taken from [facility] Scripts Ondansetron (ONDANSETRON ODT) 4 Mg Tab.rapdis 1 TAB PO PRN Q6-8HRS PRN for NAUSEA, #16 TAB Prov: RANDY DIXON DO 01/09/20 Justification of Admission: Justification of Admission: Justification of Admission Dx: N/A NIHSS - ED NIH Stroke Scale: NIH Stroke Scale Response (Comments) Value Level of Consciousness: 0 Alert/Responsive 0 LOC Questions: 1 Answers one correctly 1 LOC Commands: 0 Performs both tasks 0 Best Gaze: 0 Normal 0 Visual: 0 No visual loss 0 Facial Palsy: 0 Normal, symmetrical 0 Motor - Left Arm 0 No drift 0 Motor - Right Arm 0 No drift 0 Motor - Left Leg 0 No drift 0 Motor: Right Leg 0 No drift 0 Limb Ataxia: 0 Absent 0 Sensory: 0 No loss 0 Best Language: 0 Normal 0 Dysathria: 0 Normal 0 Extinction and Inattention: 0 Normal 0 Total 1 COVID-19 Assessment COVID-19 Patient Risks: Age 65 or older: Yes Sign of co-morbidity: Yes Exp to person + for COVID: No Exp to PUI: No Travel from affected area: No Lower respiratory symptoms: No Fever: No PPE Use: Full PPE with N95 mask or PAPR: Yes RANDY DIXON DO Jan 09, 2020 11:36
[2020-01-09 11:56] LABS: BASO % 1 % (0-3); EOS # 0.1 x10^3/uL (0.0-0.7); EOS % 2 % (0-3); HEMATOCRIT 36.1 % (36.0-47.0); HEMOGLOBIN 12.1 g/dL (12.0-15.5); LYMPH # 1.2 x10^3/uL (1.0-4.8); LYMPH % 42 % (24-48); MEAN CORPUSCULAR HEMOGLOBIN 29 pg (25-35); MEAN CORPUSCULAR HGB CONC 34 g/dL (31-37); MEAN CORPUSCULAR VOLUME 86 fL (79-100); MONO # 0.3 x10^3/uL (0.0-1.1); MONO % 11 % (0-9); NEUT # 1.2 x10^3uL (1.8-7.7); NEUT % 44 % (31-73); PLATELET COUNT 202 x10^3/uL (140-400); RED BLOOD COUNT 4.19 x10^6/uL (3.50-5.40); WHITE BLOOD COUNT 2.8 x10^3/uL (4.0-11.0)
[2020-01-09 12:12] LABS: CALCIUM 8.7 mg/dL (8.5-10.1); CREATININE 1.3 mg/dL (0.6-1.0); GFR 47.6; POTASSIUM 3.4 mmol/L (3.5-5.1)
--- NOTE | 2020-01-09 12:22 | RAD ---
CHEST AP ONLY History: Reason: weakness / Spl. Instructions: / History: Comparison: September 30, 2016 Findings: Ill-defined patchy opacities bilaterally. Enlarged cardiac size. No pneumothorax. No pleural effusion. Unchanged right midlung calcified nodule, likely prior granulomatous disease. Impression: 1. Ill-defined patchy opacities bilaterally, can be seen with viral pneumonia. 2. Enlarged cardiac size, may represent cardiomegaly and/or pericardial effusion. Electronically signed by: Tano Suazo DO (01/09/2020 12:19 PM) [id number]
--- NOTE | 2020-01-09 12:26 | RAD ---
CT HEAD WO CONTRAST History: Reason: syncope / Spl. Instructions: / History: Comparison: December 30, 2019 Technique: Noncontrast CT imaging was performed of the head. Exposure: One or more of the following individualized dose reduction techniques were utilized for this examination: 1. Automated exposure control 2. Adjustment of the mA and/or kV according to patient size 3. Use of iterative reconstruction technique. Findings: No intracranial hemorrhage. No mass effect. No hydrocephalus. Foci of decreased attenuation within the hemispheric white matter, most often due to chronic microvascular ischemia, unchanged. Imaged orbits are unremarkable. Imaged paranasal sinuses and mastoid air cells are clear. No acute calvarial fracture. Impression: 1. No acute intracranial abnormality. Electronically signed by: Tano Suazo DO (01/09/2020 12:22 PM) [id number]
[2020-01-09 12:39] LABS: ALBUMIN 3.7 g/dL (3.4-5.0); ALBUMIN/GLOBULIN RATIO 0.9 (1.0-1.7); TOTAL BILIRUBIN 0.6 mg/dL (0.2-1.0); TOTAL PROTEIN 7.6 g/dL (6.4-8.2)
[2020-01-09 14:02] LABS: BACTERIA,URINE 0 /HPF (0-FEW); BILIRUBIN,URINE NEG (NEG); CLARITY,URINE CLEAR; COLOR,URINE YELLOW; GLUCOSE,URINE NEG (NEG); NITRITE,URINE NEG (NEG); RBC,URINE OCC /HPF (0-2); SQUAMOUS EPITHELIAL CELL,UR MOD /LPF
[2020-01-09 14:55] VITALS: BP 187/87
[2020-01-09] MEDS ORDERED: ONDA4TAB12 PO (15:14)
--- NOTE | 2020-01-09 17:59 | EKG ---
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
--- NOTE | 2020-01-13 11:23 | NUR ---
attempt to notify patient of VOCID-19 result, message stated not accepting calls at this time.
== END 2020-01-09 15:33 | disposition home or self-care (01) ==
LOC: ER 11:10
DX: R11.2 Nausea with vomiting, unspecified (principal); Z20.828 Contact with and (suspected) exposure to other viral communicable diseases; F03.90 Unspecified dementia, unspecified severity, without behavioral disturbance, psychotic disturbance, mood disturbance, and anxiety; I10 Essential (primary) hypertension; Z88.8 Allergy status to other drugs, medicaments and biological substances; Z88.0 Allergy status to penicillin
CPT/HCPCS: 36415; 70450; 71045; 80053; 81001; 82140; 82553; 83605; 83690; 83735; 83880; 84484; 85025; 85610; 85730; 87086; 93005; 96361; 96374; 96375; 99285; J2405; J3490; J7030; U0003

== ENCOUNTER → 2020-08-07 | Outpatient (CLI) | payer MEDICARE, OTHER ==
[~2020-08-07] MED LIST changes: +AMLO-187 PO; -AMLO10TA8 PO; -ASPI-612 PO; +ASPI-889 PO; +LISI10TA16 PO; -LISI10TA2 PO; +ONDA4TAB12 PO
--- NOTE | 2020-08-07 16:32 | CARD ---
MR#: [id number] Date of Study: 08/07/2020 Ordering Physician: MARISA WELCH, Referring Physician: MARISA WELCH, Tech: Charlette Craig [facility] APPROVED REPORT EXAM: Two-dimensional and M-mode echocardiogram with Doppler and color Doppler. Other Information Quality : Good INDICATION Cardiac Disease: CAD Syncope 2D DIMENSIONS RVDd2.8 (2.9-3.5cm)Left Atrium(2D)4.5 (1.6-4.0cm) IVSd1.3 (0.7-1.1cm)Aortic Root(2D)3.1 (2.0-3.7cm) LVDd4.2 (3.9-5.9cm)LVOT Diameter2.2 (1.8-2.4cm) PWd1.1 (0.7-1.1cm)LVDs2.1 (2.5-4.0cm) FS (%) 30.0 %SV64.4 ml LVEF(%)60.0 (>50%) Aortic Valve AoV Peak Nahum.210.3cm/sAoV VTI45.0cm AO Peak GR.17.7mmHgLVOT Peak Nahum.115.0cm/s LVOT VTI 26.28cmAO Mean GR.10mmHg CHRISTIANO (VMAX)2.71nk9GXE (VTI)2.24cm2 Mitral Valve MV E Edkjgqaf74.7cm/sMV DECEL FSCQ976yr MV A Ahodvetw351.9cm/sE/A Ratio0.8 Tricuspid Valve TR P. Bazkqkqm180es/sRAP FYOKZUWZ4toUd TR Peak Gr.82haWbTIMX44klAi Pulmonary Vein S1 Hfpqcdfu81.5cm/sD2 Vaygiukp81.7cm/s LEFT VENTRICLE The left ventricle is normal size. There is mild concentric left ventricular hypertrophy. The left ve ntricular systolic function is normal and the ejection fraction is within normal range. The Ejection Fraction is 55-60%. There is normal LV segmental wall motion. Transmitral Doppler flow pattern is Gra de I-abnormal relaxation pattern. RIGHT VENTRICLE The right ventricle is normal size. The right ventricular systolic function is normal. ATRIA The left atrium is mildly dilated. The right atrium size is normal. The interatrial septum is intact with no evidence for an atrial septal defect or patent foramen ovale as noted on 2-D or Doppler imagi ng. AORTIC VALVE The aortic valve is moderately thickened and calcified but opens well. Doppler and Color Flow reveale d trace aortic regurgitation. There is no significant aortic valvular stenosis. MITRAL VALVE The mitral valve is calcified but opens well. Mitral annular calcification is moderate. There is no e vidence of mitral valve prolapse. There is no mitral valve stenosis. Doppler and Color-flow revealed trace to mild mitral regurgitation. TRICUSPID VALVE The tricuspid valve is normal in structure and function. Doppler and Color Flow revealed trace tricus pid regurgitation. The PA pressure was estimated at 31 mmHg. There is no tricuspid valve stenosis. PULMONIC VALVE The pulmonic valve is not well visualized. Doppler and Color Flow revealed trace to mild pulmonic gretchen vular regurgitation. There is no pulmonic valvular stenosis. GREAT VESSELS The aortic root is normal in size. The ascending aorta is normal in size. The IVC is normal in size a nd collapses >50% with inspiration. PERICARDIAL EFFUSION There is a trace circumferential pericardial effusion. Critical Notification Critical Value: No <Conclusion> The left ventricular systolic function is normal and the ejection fraction is within normal range. Th e Ejection Fraction is 55-60%. There is normal LV segmental wall motion. There is a trace circumferential pericardial effusion. Signed by : Marisa eWlch, Electronically Approved : 08/07/2020 16:31:52
== END ==
LOC: ECHO 13:29
PROVIDERS: ATTEND Internal Medicine Cardiovascular Disease
DX: I08.8 Other rheumatic multiple valve diseases (principal)
CPT/HCPCS: 93306